=== PATIENT | female | born 1985 | race Caucasian/White ===

== ENCOUNTER 2022-10-15 01:05 | Emergency (ER) | payer MEDICAID ==
[~2022-10-15] VITALS: Ht 154.9 cm; Wt 125.2 kg
[2022-10-15 01:19] VITALS: BP 132/84; PULSE 95; RESP 24; TEMP 98.3; O2SAT 100
--- NOTE | 2022-10-15 01:27 | NUR ---
PT TO [facility]
--- NOTE | 2022-10-15 02:33 | NUR ---
pt ambulated to bed 06.
[2022-10-15] MEDS ORDERED: DICYCLOMINE HCL LIQUID 20 MG, ALUMINUM HYD/MAG/SIMETHICONE 30 ML, LIDOCAINE VISCOUS 2% ... PO ONE ×3 (02:35)
[2022-10-15] MEDS ORDERED: FAMOTIDINE 20 MG TAB PO ONE (02:35)
[2022-10-15] MEDS ORDERED: ONDANSETRON 4 MG ODT PO ONE (02:35)
[2022-10-15 02:50] VITALS: TEMP 98.3
[2022-10-15] MEDS ORDERED: MORPHINE SULFATE 4 MG/ML SYR IVP ONE ×2 (03:05→05:35)
[2022-10-15] MEDS ORDERED: ONDANSETRON 4 MG/2 ML VIAL IVP ONE (03:05)
[2022-10-15] MEDS ORDERED: NACL 0.9% 1,000 ML IV ONE (03:05)
[2022-10-15] MEDS ORDERED: FAMOTIDINE 20 MG/2 ML VIAL IVP ONE (03:10)
[2022-10-15 03:39] LABS: BASOPHILS # (AUTO) 0.1 K/uL (0.00-0.22); BASOPHILS % (AUTO) 0.6 % (0.0-2.0); EOSINOPHILS # (AUTO) 0.1 K/uL (0-0.4); EOSINOPHILS % (AUTO) 0.6 % (0.0-4.0); HEMATOCRIT 37.8 % (36-48); HEMOGLOBIN 12.4 g/dL (12.0-16.0); LYMPHOCYTES # (AUTO) 1.7 K/uL (2.5-16.5); LYMPHOCYTES % (AUTO) 16.5 % (20.5-51.1); MEAN CORPUSCULAR HEMOGLOBIN 29 pg (27-31); MEAN CORPUSCULAR HGB CONC 33 g/dL (33-37); MEAN CORPUSCULAR VOLUME 87.1 fL (80-94); MONOCYTES # (AUTO) 0.5 K/uL (0.8-1.0); MONOCYTES % (AUTO) 4.7 % (1.7-9.3); NEUTROPHILS # (AUTO) 8.2 K/uL (1.8-7.7); NEUTROPHILS % (AUTO) 77.6 % (42.2-75.2); PLATELET COUNT (AUTO) 343 K/uL (140-450); RED BLOOD CELL COUNT(AUTO) 4.34 MIL/uL (4.20-5.40); RED CELL DISTRIBUTION WIDTH 14.6 % (11.6-13.7); WHITE BLOOD COUNT (AUTO) 10.6 K/uL (4.8-10.8)
[2022-10-15 04:00] LABS: ALBUMIN 3.9 g/dL (3.4-5.0); ANION GAP 12.8 (8-16); CARBON DIOXIDE 25.2 mmol/L (21-32); CREATININE 0.9 mg/dL (0.6-1.3); TOTAL BILIRUBIN 0.3 mg/dL (0.0-1.0)
--- NOTE | 2022-10-15 04:07 | NUR ---
Patient taken to CT.
--- NOTE | 2022-10-15 04:28 | NUR ---
US at bedside.
--- NOTE | 2022-10-15 05:17 | NUR ---
Patient awake in bed with complaints of abdominal pain still. ERMD made aware. Awaiting new orders. Respirations regular, unlabored. Denies chest pain. Side rails up and call light within reach.
--- NOTE | 2022-10-15 05:27 | NUR ---
Patient is a 36/F who came in due to abdominal pain, right upper quadrant and suprapubic area radiating to all quadrants and right upper back, burning, intermittent, 10/10 associated with neausea/vomiting, chills, urinary frequency/urgency, dysuria and incomplete voiding. PMHx: Denies NKA
[2022-10-15 05:54] LABS: APPEARANCE,URINE CLEAR (CLEAR); BILIRUBIN,URINE NEGATIVE (NEGATIVE); BLOOD, URINE 1+ (NEGATIVE); COLOR,URINE YELLOW (YELLOW); LEUKOCYTE ESTERASE ,URINE NEGATIVE (NEGATIVE); NITRITE, URINE NEGATIVE (NEGATIVE); UGLUCOSE NEGATIVE (NEGATIVE)
[2022-10-15 05:58] LABS: RBC,URINE 0-5 /HPF (0-5)
[2022-10-15] MEDS ORDERED: BISM262C52 PO (06:35)
[2022-10-15] MEDS ORDERED: OMEP40EC23 PO (06:35)
[2022-10-15] MEDS ORDERED: ONDA-188 PO (06:35)
[2022-10-15] MEDS ORDERED: BEN10 PO (06:35)
--- NOTE | 2022-10-15 06:55 | NUR ---
Patient discharged with v/s stable. Written and verbal after care instructions given and explained. Patient alert, oriented and verbalized understanding of instructions. Ambulatory with steady gait. All questions addressed prior to discharge. ID band removed. Patient advised to follow up with PMD. Rx of Bentyl, Pepto-Bismol, Prilosec and Zofran given. Patient educated on indication of medication including possible reaction and side effects. Opportunity to ask questions provided and answered.
[2022-10-15 07:06] VITALS: BP 103/47; PULSE 64; RESP 15; O2SAT 99
== END 2022-10-15 07:06 | disposition home or self-care (01) ==
LOC: MED 01:05
DX: R10.13 Epigastric pain (principal); R10.84 Generalized abdominal pain; R10.11 Right upper quadrant pain; R10.31 Right lower quadrant pain
CPT/HCPCS: 36415; 74176; 76705; 80053; 81001; 81025; 83605; 83690; 85025; 87040; 87086; 96361; 96374; 96375; 96376; 99285; J2270; J2405; J3490; Q0092; J7030